=== PATIENT | female | born 1995 | race Caucasian/White ===

== ENCOUNTER 2020-02-14 23:04 | Emergency (ER) | payer BC ==
[~2020-02-14] VITALS: Ht 165.1 cm; Wt 59.1 kg
[2020-02-15 01:15] VITALS: BP 116/69; PULSE 72; TEMP 97.8
== END 2020-02-15 01:15 | disposition home or self-care (01) ==
LOC: COL.ER 23:04
DX: S51.811A Laceration without foreign body of right forearm, initial encounter (principal); Z23 Encounter for immunization; W25.XXXA Contact with sharp glass, initial encounter; Y92.009 Unspecified place in unspecified non-institutional (private) residence as the place of occurrence of the external cause